=== PATIENT | female | born 1990 | race Caucasian/White ===

== ENCOUNTER 2023-06-25 09:58 | Inpatient (IN) | payer BC ==
[~2023-06-25 09:58] MED LIST: Bicitra 30 ML UDCUP PO PRN; Clindamycin/D5W 900 MG in Premix Bag 1 BAG IVPB SCH; Famotidine/PF 20 mg/2ml Vial SLOW IVP PRN; Gentamicin Sulfate 120 MG in Premix Bag 1 BAG IVPB SCH; Lactated Ringer's 1,000 ML IV SCH; Ondansetron PF 4 MG/2 ML Vial IVP PRN; Oxytocin 30 units/NS 500 ML 500 ML IV SCH; Promethazine HCl 25 MG/ML VIAL IM PRN; hydrALAZINE 20 MG/ML VIAL SLOW IVP PRN
[2023-06-25] MEDS ORDERED: Dexamethasone 4 mg/ml Vial ONE (10:47)
[2023-06-25] MEDS ORDERED: Morphine PF 10 MG/10 ML VIAL ONE (10:47)
[2023-06-25] MEDS ORDERED: fentaNYL 50 mcg/mL 1 mL Vial ONE (10:47)
[2023-06-25] MEDS ORDERED: Ondansetron PF 4 MG/2 ML Vial ONE (10:47)
[2023-06-25] MEDS ORDERED: Oxytocin 10 UNITS/ML VIAL ONE (10:48)
[2023-06-25 10:57] VITALS: BMI 37.9
[2023-06-25] MEDS ORDERED: Meperidine HCl/PF 25 MG/ML VIAL SLOW IVP PRN (11:10)
[2023-06-25] MEDS ORDERED: Ondansetron PF 4 MG/2 ML Vial IVP PRN ×2 (11:10→12:32)
[2023-06-25] MEDS ORDERED: Ondansetron HCl/PF 4 MG/2 ML Vial IVP PRN (11:10)
[2023-06-25] MEDS ORDERED: Moisturizing Cream (Eucerin) 113 GM JAR TOP PRN (11:10)
[2023-06-25] MEDS ORDERED: Fentanyl 50 MCG/1 ML VIAL SLOW IVP PRN (11:10)
[2023-06-25] MEDS ORDERED: Naloxone HCl 0.4 mg/ml Vial IV PRN (11:10)
[2023-06-25] MEDS ORDERED: Promethazine HCl 25 MG SUPP PR PRN (11:10)
[2023-06-25] MEDS ORDERED: diphenhydrAMINE 50 MG/ML VIAL IVP PRN (11:10)
[2023-06-25] MEDS ORDERED: L&D-HYDROmorphone 0.5 MG/0.5 ML SYRINGE SLOW IVP PRN (11:10)
[2023-06-25] MEDS ORDERED: Promethazine HCl 25 MG/ML VIAL IM PRN ×2 (11:10→12:32)
[2023-06-25] MEDS ORDERED: Naloxone HCl 0.4 mg/ml Vial IVP PRN ×2 (11:10)
[2023-06-25] MEDS ORDERED: Communication Order-Pharmacy FS SCH (11:15)
[2023-06-25] MEDS ORDERED: Ketorolac Tromethamine 30 MG/ML VIAL IVP SCH (11:15)
[2023-06-25] MEDS ORDERED: HYDROcodone/Acetaminophen 5/325 mg Tablet PO PRN ×2 (12:32→23:15)
[2023-06-25] MEDS ORDERED: Acetaminophen 325 MG TAB PO PRN (12:32)
[2023-06-25] MEDS ORDERED: Lanolin Ointment 7 GM TUBE TOP PRN (12:32)
[2023-06-25] MEDS ORDERED: Bisacodyl 10 MG SUPP PR PRN (12:32)
[2023-06-25] MEDS ORDERED: diphenhydrAMINE 25 MG CAP PO PRN (12:32)
[2023-06-25] MEDS ORDERED: Simethicone Chewable 80 MG TAB PO PRN (12:32)
[2023-06-25] MEDS ORDERED: Boostrix 0.5 ML (Tdap) VIAL (>/=7 yrs of age) IM ONE (12:32)
[2023-06-25] MEDS ORDERED: hydrALAZINE 20 MG/ML VIAL SLOW IVP PRN (12:32)
[2023-06-25] MEDS ORDERED: Ibuprofen 800 MG TAB PO SCH (14:00)
[2023-06-25 14:04] LABS: Hematocrit 37.9 % (34.9-44.5); Hemoglobin 12.8 g/dL (12.0-15.5); Mean Corpuscular HGB CONC 33.8 g/dL (32.0-36.0); Mean Corpuscular Hemoglobin 31.3 pg (27.0-33.0); Mean Corpuscular Volume 92.7 fl (81.6-98.3); Mean Platelet Volume 11.5 fl (7.4-10.4); Platelet Count 250 10x3/uL (150-450); RBC Distribution Width 14.5 % (11.5-14.5); Red Blood Cell (RBC) Count 4.09 10x6/uL (3.90-5.03); White Blood Cell (WBC) Count 13.2 10x3/uL (3.5-10.5)
[2023-06-25 14:32] LABS: HBSAg Index 0.17 S/CO (0-0.99); Hep B Surf Ag - L&D Non-Reactive S/CO (NonReactive); Syphilis Antibody Nonreactive (Nonreactive); Syphilis Antibody Index 0.06 S/CO (<1.00 Non-Reactive)
[2023-06-25] MEDS: Ketorolac Tromethamine 30 MG/ML VIAL IVP PRN (17:09)
[2023-06-25] MEDS: Docusate 100 MG CAP PO SCH (21:55)
[2023-06-25] MEDS ORDERED: Zolpidem Tartrate 5 MG TAB PO PRN (23:15)
[2023-06-25] MEDS: Ferrous Sulfate 325 MG TAB PO SCH (23:42)
[2023-06-26] MEDS: Ketorolac Tromethamine 30 MG/ML VIAL IVP PRN (01:27)
[2023-06-26 04:31] LABS: Hematocrit 32.7 % (34.9-44.5); Hemoglobin 10.8 g/dL (12.0-15.5); Mean Corpuscular Hemoglobin 31.3 pg (27.0-33.0); Mean Corpuscular Volume 94.8 fl (81.6-98.3); Mean Platelet Volume 10.6 fl (7.4-10.4); Platelet Count 211 10x3/uL (150-450); RBC Distribution Width 14.4 % (11.5-14.5); Red Blood Cell (RBC) Count 3.45 10x6/uL (3.90-5.03); White Blood Cell (WBC) Count 12.1 10x3/uL (3.5-10.5)
[2023-06-26] MEDS: Docusate 100 MG CAP PO SCH ×2 (07:49→21:28)
[2023-06-26] MEDS: Prenatal Vitamin 1 TAB PO SCH (07:49)
[2023-06-26] MEDS: HYDROcodone/Acetaminophen 5/325 mg Tablet PO PRN ×3 (07:49→15:56)
[2023-06-26] MEDS: Ferrous Sulfate 325 MG TAB PO SCH ×2 (10:38→20:37)
[2023-06-26] MEDS: Ibuprofen 800 MG TAB PO SCH ×2 (13:30→21:28)
[2023-06-27] MEDS: Ibuprofen 800 MG TAB PO SCH (05:20)
[2023-06-27] MEDS: Ferrous Sulfate 325 MG TAB PO SCH (07:22)
[2023-06-27 07:37] VITALS: BP 137/69; TEMP 97.7
[2023-06-27] MEDS: Docusate 100 MG CAP PO SCH (08:40)
[2023-06-27] MEDS: Prenatal Vitamin 1 TAB PO SCH (08:40)
[2023-06-27] MEDS: HYDROcodone/Acetaminophen 5/325 mg Tablet PO PRN (08:40)
== END 2023-06-27 11:08 | disposition home or self-care (01) | DRG 788 ==
LOC: CSHLD 09:58 → CSHPP 14:56
PROVIDERS: ADMIT Student in an Organized Health Care Education/Training Program; ATTEND Student in an Organized Health Care Education/Training Program
PROC: 10D00Z1 Extraction of Products of Conception, Low, Open Approach (ICD-10-PCS; principal; 2023-06-25)
DX: O34.211 Maternal care for low transverse scar from previous cesarean delivery (principal); Z37.0 Single live birth; Z3A.39 39 weeks gestation of pregnancy; O13.4 Gestational [pregnancy-induced] hypertension without significant proteinuria, complicating childbirth; Z88.0 Allergy status to penicillin; Z88.8 Allergy status to other drugs, medicaments and biological substances
CPT/HCPCS: 36415; 51702; 85027; 86780; 86850; 86900; 86901; 87340; J1100; J1885; J2274; J2405; J2590; J3010